=== PATIENT | female | born 1940 | race Caucasian/White ===

== ENCOUNTER 2017-03-21 21:25 | Inpatient (IN) | payer MEDICARE ==
[2017-03-21 22:03] LABS: #Basophils 0.1 thou/uL (0.0-0.2); #Eosinphils 0.4 thou/uL (0.0-0.7); #Lymphocytes 3.2 thou/uL (1.20-3.40); #Monocytes 0.6 thou/uL (0.11-0.59); #Neutrophils 4.3 thou/uL (1.40-6.50); %Basophils 0.7 % (0.0-1.0); %Eosinophils 4.2 % (0.0-10.0); %Lymphocytes 36.9 % (21.0-51.0); %Monocytes 7.4 % (0.0-10.0); Hematocrit 46.9 % (36.0-47.0); Red Blood Cell (RBC) Count 4.93 mill/uL (4.20-5.40); White Blood Cell (WBC) Count 8.5 thou/uL (4.8-10.8)
[2017-03-21] MEDS ORDERED: Diltiazem HCl 125 MG, Admixture Fee 1 EACH in Sodium Chloride 0.9% 100 ML SLOW IVP SCH (22:15)
--- NOTE | 2017-03-21 22:16 | RAD ---
AP VIEW OF THE CHEST 03/21/17 INDICATION: Palpitations and history of a-fib. COMPARISON: Prior two views of the chest dated 01/20/14. IMPRESSION: No acute cardiopulmonary abnormality. Chronic lung changes are similar. Calcified granuloma within t he left mid lung is stable. Heart size and pulmonary vasculature are within normal limits. No acute osseous abnormality is evident. POS: [facility]
[2017-03-21 22:28] LABS: ALT (SGPT) 14 U/L (8-55); AST (SGOT) 20 U/L (5-34); Alkaline Phosphatase 63 U/L (40-150); Anion Gap 18 mmol/L (10-20); BUN (Urea Nitrogen) 16 mg/dL (9.8-20.1); Bilirubin, Total 0.4 mg/dL (0.2-1.2); CK (CPK) 42 U/L (29-168); Calc. Creatinine Clearance 0 mL/min (70-130); Calcium 9.7 mg/dL (7.8-10.44); Carbon Dioxide 20 mmol/L (23-31); Chloride 103 mmol/L (98-107); Estimated GFR-MDRD 73; Globulin 2.9 g/dL (2.4-3.5); Protein, Total 7.2 g/dL (6.0-8.3)
[2017-03-21 22:32] LABS: Troponin I Less than 0.010 ng/mL (< 0.028)
[2017-03-22 01:45] VITALS: BMI 23.1
[2017-03-22] MEDS ORDERED: Acetaminophen 325 MG TAB PO PRN ×2 (02:24→08:10)
[2017-03-22] MEDS ORDERED: Ondansetron ODT 4 MG TAB SL PRN (02:24)
[2017-03-22] MEDS ORDERED: Ondansetron HCl/PF 4 MG/2 ML Vial IVP PRN (02:24)
[2017-03-22] MEDS ORDERED: Nitroglycerin 0.4 MG TAB (25 Tab Bottle) PO PRN (08:09)
[2017-03-22] MEDS ORDERED: Senokot 8.6 MG TAB PO PRN (08:10)
[2017-03-22] MEDS ORDERED: Mag-Al 1200 mg/1200 mg/30 ML UDCUP PO PRN (08:10)
[2017-03-22] MEDS ORDERED: Calcium Carbonate 500 MG ChewTAB PO PRN (08:10)
[2017-03-22] MEDS ORDERED: Milk Of Magnesia 30 ML UDCUP PO PRN (08:10)
--- NOTE | 2017-03-22 08:13 | PDOC.EVN ---
Event Note - Event Note Event Note: Patient seen and examined. Note dictated. Full code. Makes her own decisions.
[2017-03-22] MEDS ORDERED: Diltiazem 125 MG in Sodium Chloride 0.9% 100 ML IVPB SCH (08:15)
--- NOTE | 2017-03-22 08:34 | HP ---
DATE OF ADMISSION: 03/21/2017 PRIMARY CARE PHYSICIAN: Dr. Serrano. PRIMARY CARPET JOURNEYMAN: Dr. Uday Saez. CHIEF COMPLAINT: Palpitations. HISTORY OF PRESENT ILLNESS: The patient is a 76-year-old female with paroxysmal atrial fibrillation , on propafenone, presented to the emergency room with sudden onset of palpitations that started jyothi und at 8:00 p.m. while she was at home. She felt lightheaded along with some shortness of breath. No chest pain or syncope reported. No fever or chills. Recent immobilization travel reported. She is compliant with all of her medications. She is currently on aspirin. Her thyroid function was n ormal last week. She consumes 2-3 cups of coffee on a daily basis. In the emergency room, her initial vital signs showed temperature 97.8, respirations 18, pulse 147, blood pressure of 187/83 with O2 saturation 96% on room air. Her EKG was consistent with the atrial fibrillation with rapid ventricular response with heart rate in 140s. She was started on Cardizem drip. She received a total of 20 mg of Cardizem push along with IV fluids in the emergency room. PAST MEDICAL HISTORY: 1. Paroxysmal atrial fibrillation. 2. Hypertension. 3. Hyperlipidemia. 4. Coronary artery disease. PAST SURGICAL HISTORY: 1. Cardiac catheterization. 2. Fibroid tumor removal from the breast. 3. Tonsillectomy. 4. Appendectomy. 5. Hysterectomy. ALLERGIES: The patient is allergic to CODEINE, ERYTHROMYCIN, PENICILLIN, and SULFA. She also canno t tolerate STATINS. CURRENT HOME MEDICATIONS: Aspirin 81 mg daily, Zetia 10 mg daily, Centrum 1 tablet daily, fish oil 1000 mg daily, propafenone 225 mg three times daily, coenzyme Q10 200 mg daily, Diovan 320 mg daily. SOCIAL HISTORY: Patient currently lives at home. She denies any smoking or drug use. She drinks s ocially. FAMILY HISTORY: Negative for premature coronary artery disease. REVIEW OF SYSTEMS: The following complete review of systems was negative, unless otherwise mentione d in the HPI or below: Constitutional: Weight loss or gain, ability to conduct usual activities. Skin: Rash, itching. Eyes: Double vision, pain. ENT/Mouth: Nose bleeding, neck stiffness, pain, tenderness. Cardiovascular: Palpitations, dyspnea on exertion, orthopnea. Respiratory: Shortnes s of breath, wheezing, cough, hemoptysis, fever or night sweats. Gastrointestinal: Poor appetite, abdominal pain, heartburn, nausea, vomiting, constipation, or diarrhea. Genitourinary: Urgency, fr equency, dysuria, nocturia. Musculoskeletal: Pain, swelling. Neurologic/Psychiatric: Anxiety, de pression. Allergy/Immunologic: Skin rash, bleeding tendency. PHYSICAL EXAMINATION: VITAL SIGNS: As discussed above. GENERAL: A 76-year-old female in no apparent distress, feels better on Cardizem drip. HEENT: Head is atraumatic, normocephalic. Sclerae are anicteric. Moist mucous membranes. No oral lesion. NECK: Supple, no JVD appreciated. No carotid bruit. LUNGS: Clear to auscultation bilaterally. HEART: S1, S2 present. Irregularly irregular. No murmurs, rubs, or gallops appreciated. ABDOMEN: Soft, nontender, bowel sounds present. EXTREMITIES: No edema or calf tenderness. NEUROLOGIC: Grossly nonfocal. Moves all four extremities. PSYCHIATRY: Alert, awake, oriented x3, normal affect. SKIN: Warm and dry. LYMPH NODES: No palpable lymph nodes in the neck. PERIPHERAL VASCULAR: Radial pulses palpable bilaterally. MUSCULOSKELETAL: No joint swelling or tenderness. LABORATORY FINDINGS: 1. D-dimer was negative. 2. Troponins were not normal. 3. Sodium 137, potassium 4.2 with BUN 16, creatinine 0.77. 4. LFTs in normal range. 5. CBC showed WBC 8.5 with hemoglobin 15.3. 6. Chest x-ray, by my review, was negative for infiltrate. 7. EKG, by my review, as discussed above. IMPRESSION AND PLAN: 1. Atrial fibrillation with rapid ventricular response. Cardizem drip will be continued. We will keep n.p.o. We will consult Cardiology. Resume home dose of propafenone. We will discuss with Car diology if she needs to be on anticoagulation. Continue aspirin for now. 2. Hyperlipidemia. We will continue Zetia. 3. Hypertension. We will hold Diovan for now while on Cardizem drip. We will resume probably next 24 hours. The last blood pressure was 125/65. 4. Chronic kidney disease, stage 2. 5. Moderate mitral regurgitation/moderate aortic insufficiency. 6. Coronary artery disease. Plan of care was discussed with the patient. She stated understanding. The patient will require 2-3 days for stabilization.
[2017-03-22 08:41] LABS: Magnesium 1.9 mg/dL (1.6-2.6); Phosphorus 3.2 mg/dL (2.3-4.7)
[2017-03-22 08:48] LABS: Troponin I 0.013 ng/mL (< 0.028)
[2017-03-22] MEDS ORDERED: Aspirin 81 mg Enteric Coated Tablet PO SCH (09:00)
[2017-03-22] MEDS: Propafenone HCl 150 MG TAB PO SCH ×3 (09:10→21:39)
[2017-03-22] MEDS: Ezetimibe 10 MG TAB PO SCH (09:11)
[2017-03-22] MEDS: Apixaban 5 MG TAB PO SCH ×2 (09:22→21:38)
--- NOTE | 2017-03-22 09:59 | CON ---
DATE OF CONSULTATION: 03/22/2017 HISTORY: The patient is a 76-year-old woman who presented for evaluation of palpitations. The patient has a long history of atrial fibrillation. The patient also has a history of coronary artery disease. She has previously undergone a cardiac catheterization in 04/2011. She was found to have 70% stenosis in a second diagonal branch and luminal irregularities. The patient has been on medical therapy. She has been admitted previously with atrial fibrillation. She has been treated with Rythmol. The patient was in her usual state of health when she missed taking her afternoon dose of propafenone. A few hours later, the patient developed rapid palpitations. She denied having any chest discomfort. PAST MEDICAL HISTORY: 1. Atrial fibrillation. 2. Coronary artery disease. 3. Hypertension. PAST SURGICAL HISTORY: Hysterectomy, breast surgery, tonsillectomy. SOCIAL HISTORY: Nonsmoker. The patient has approximately 2 drinks a day. MEDICATIONS: Diovan 320 daily, Zetia 10 daily, aspirin 81 daily, propafenone 225 t.i.d. ALLERGIES: PENICILLIN, CODEINE, SULFA DRUGS and MYCIN DRUGS. REVIEW OF SYSTEMS: Ten point system notable for constipation. No history of easy bruising or bleeding, bright red blood per rectum, hematuria. PHYSICAL EXAMINATION: GENERAL: Well-developed woman in no acute distress. VITAL SIGNS: Blood pressure 125/65. NECK: Showed no jugular venous distention, no carotid bruits. LUNGS: Clear to auscultation. HEART: Regular rate and rhythm, normal S1, S2, no murmurs. ABDOMEN: Soft, nondistended. EXTREMITIES: Showed no edema. SKIN: Warm and dry. NEUROLOGIC: Nonfocal. VASCULAR: Radial pulses are 2+. LABORATORY RESULTS: Her white blood count is 8.5, hemoglobin 15.3, hematocrit 46.9, platelets are 263. Sodium is 137, potassium 4.2, chloride 103, bicarbonate 20, BUN 16, creatinine 0.77, glucose was 110. Troponin 0.013. EKG revealed atrial fibrillation with ST-T wave abnormality suggestive of ischemia. IMPRESSION: 1. Paroxysmal atrial fibrillation. 2. Coronary artery disease. 3. Hypertension. This patient presented with recurrent atrial fibrillation. The patient missed a dose of her propafenone. The patient will be started on low dose of beta blossom. The patient has a CHADS-VAS score of 5. We will start anticoagulation. We will place the patient on Apixaban, we will discontinue aspirin. We will restart the patient on propafenone and follow her with you through her hospitalization. ISAURA
[2017-03-22] MEDS ORDERED: cloNIDine 0.1 MG TAB PO PRN (14:20)
[2017-03-23 05:30] LABS: #Basophils 0.1 thou/uL (0.0-0.2); #Eosinphils 0.3 thou/uL (0.0-0.7); #Monocytes 0.6 thou/uL (0.11-0.59); #Neutrophils 2.9 thou/uL (1.40-6.50); %Basophils 1.2 % (0.0-1.0); %Eosinophils 4.1 % (0.0-10.0); %Lymphocytes 43.7 % (21.0-51.0); %Monocytes 8.3 % (0.0-10.0); Hematocrit 38.9 % (36.0-47.0); Mean Platelet Volume 6.2 fL (7.4-10.4); Red Blood Cell (RBC) Count 4.05 mill/uL (4.20-5.40); White Blood Cell (WBC) Count 6.8 thou/uL (4.8-10.8)
[2017-03-23 05:53] LABS: Anion Gap 10 mmol/L (10-20); BUN (Urea Nitrogen) 14 mg/dL (9.8-20.1); Calc. Creatinine Clearance 55 mL/min (70-130); Calcium 8.7 mg/dL (7.8-10.44); Carbon Dioxide 25 mmol/L (23-31); Chloride 104 mmol/L (98-107); Estimated GFR-MDRD 68; Magnesium 1.9 mg/dL (1.6-2.6)
[2017-03-23] MEDS: Apixaban 5 MG TAB PO SCH (09:54)
[2017-03-23] MEDS: Ezetimibe 10 MG TAB PO SCH (09:55)
[2017-03-23] MEDS: Propafenone HCl 150 MG TAB PO SCH (09:56)
[2017-03-23 11:55] VITALS: BP 101/65; TEMP 98.3
--- NOTE | 2017-03-23 12:03 | DIS ---
DATE OF DISCHARGE: 03/23/2017 DISCHARGE DISPOSITION: Home. FOLLOWUP: Follow up with primary care physician, Dr. Serrano in 1 week. Follow up with Dr. Saez n ext week. ALLERGIES: Patient is allergic to CODEINE, ERYTHROMYCIN, PENICILLIN, and SULFA. DISCHARGE MEDICATIONS: Toprol-XL 25 mg daily, Eliquis 5 mg b.i.d. Other home medications were resu med. Zetia 10 mg daily, multivitamin 1 tablet daily, fish oil 1000 mg daily, propafenone 225 mg t.i .d., Coenzyme Q10 of 200 mg daily, Diovan 320 mg daily. Patient was advised to reduce Diovan's dose if blood pressure is running on the lower side. BRIEF HOSPITAL COURSE: Patient is a 76-year-old female with paroxysmal atrial fibrillation, hyperte nsion, hyperlipidemia, and coronary artery disease presented to the hospital with palpitations. Her workup was consistent with atrial fibrillation with rapid ventricular response with a heart rate of 147. She was started on Cardizem drip. Her home dose of Rythmol was resumed. Patient was evaluat ed by Cardiology, Dr. Salazar. She spontaneously converted to sinus rhythm without any interventio n. Anticoagulation has been started. Her home dose of aspirin has been discontinued. She was also started on Toprol-XL. She has been cleared by Cardiology for discharge. Risk not limited to life threatening, bleeding from anticoagulation was discussed. She stated understanding. FINAL DIAGNOSES: 1. Atrial fibrillation with rapid ventricular response. Patient converted to sinus rhythm without any intervention. Toprol-XL was added. She was started on anticoagulation. Aspirin was discontinu ed. 2. Hypertension 3. Hyperlipidemia. 4. Chronic kidney disease, stage 2. 5. Coronary artery disease. 6. Moderate mitral regurgitation/moderate aortic insufficiency. Plan of care was discussed with the patient. She stated understanding.
--- NOTE | 2017-03-23 15:27 | EKG ---
Test Reason : SOB Blood Pressure : / mmHG Vent. Rate : 146 BPM Atrial Rate : 144 BPM P-R Int : 000 ms QRS Dur : 110 ms QT Int : 302 ms P-R-T Axes : 000 054 -66 degrees QTc Int : 470 ms Atrial fibrillation with rapid ventricular response Marked ST abnormality, possible inferior subendocardial injury No STEMI Abnormal ECG Confirmed by TEDDY ROACH M.D. ([id number]), state editor CHARIS MEAD ([id number]) on 03/23/2017 3:26:30 PM Referred By: Confirmed By:TEDDY ROACH M.D.
[2017-03-24] MEDS ORDERED: Valsartan 80 MG TAB PO SCH (09:00)
== END 2017-03-23 12:16 | disposition home or self-care (01) | DRG 310 ==
LOC: ERS 21:25 → 2SE 23:15
PROVIDERS: ADMIT Family Medicine; ATTEND Family Medicine
DX: I48.0 Paroxysmal atrial fibrillation (principal); I12.9 Hypertensive chronic kidney disease with stage 1 through stage 4 chronic kidney disease, or unspecified chronic kidney disease; I08.0 Rheumatic disorders of both mitral and aortic valves; E78.5 Hyperlipidemia, unspecified; I25.10 Atherosclerotic heart disease of native coronary artery without angina pectoris; N18.2 Chronic kidney disease, stage 2 (mild)
CPT/HCPCS: 36415; 71010; 80048; 80053; 80061; 81003; 82553; 83735; 84100; 84439; 84443; 84484; 85025; 85379; 93005; 94760; 96361; 96365; 96366; 96376; A4216; J7050

== ENCOUNTER 2018-01-28 21:42 | Emergency (ER) | payer MEDICARE ==
[2018-01-28 22:42] LABS: #Eosinphils 0.2 thou/uL (0.0-0.7); #Lymphocytes 2.4 thou/uL (1.20-3.40); #Monocytes 0.5 thou/uL (0.11-0.59); #Neutrophils 4.1 thou/uL (1.40-6.50); %Basophils 0.5 % (0.0-1.0); %Eosinophils 2.5 % (0.0-10.0); %Lymphocytes 33.6 % (21.0-51.0); %Monocytes 6.5 % (0.0-10.0); Hemoglobin 13.8 g/dL (12.0-16.0); Mean Corpuscular HGB CONC 34.5 g/dL (32.0-36.0); Mean Corpuscular Hemoglobin 32.8 pg (27.0-31.0); Mean Platelet Volume 5.9 fL (7.4-10.4); Platelet Count 275 thou/uL (130-400); RBC Distribution Width 11.6 % (11.5-14.5); Red Blood Cell (RBC) Count 4.21 mill/uL (4.20-5.40); White Blood Cell (WBC) Count 7.2 thou/uL (4.8-10.8)
--- NOTE | 2018-01-28 22:46 | RAD ---
SINGLE VIEW OF THE CHEST: 01/28/18 COMPARISON: 03/21/17 HISTORY: Shortness of breath. FINDINGS: Single view of the chest shows a normal sized cardiomediastinal silhouette. There is no evidence of c onsolidation, mass, or pleural effusion. The bones are unremarkable. IMPRESSION: No evidence of acute cardiopulmonary disease. POS: [facility]
[2018-01-28 23:06] LABS: CKMB 1.1 ng/mL (0-6.6); Troponin I Less than 0.010 ng/mL (< 0.028)
[2018-01-28] MEDS ORDERED: Meclizine HCl 25 MG TAB ONE (23:13)
--- NOTE | 2018-01-28 23:49 | CT ---
CT OF THE BRAIN WITHOUT CONTRAST: 01/28/18 COMPARISON: None. HISTORY: Hypertension and lightheadedness. TECHNIQUE: Multiple contiguous axial images were obtained in a CT of the brain without contrast. FINDINGS: The brain is normal in morphology and attenuation without focal lesions or confluent areas of infarct ion. There is no evidence of hydrocephalus, intracranial hemorrhage or extra-axial fluid collections. The calvarium and overlying soft tissues are unremarkable. The visualized paranasal sinuses and masto id air cells are well aerated. IMPRESSION: No evidence of acute intracranial abnormality. POS: [facility]
== END 2018-01-29 01:15 | disposition home or self-care (01) ==
LOC: ERS 21:42
DX: I10 Essential (primary) hypertension (principal); I48.91 Unspecified atrial fibrillation; E78.5 Hyperlipidemia, unspecified; Z79.899 Other long term (current) drug therapy
CPT/HCPCS: 36415; 70450; 71045; 82550; 82553; 83880; 84484; 85025; 93005

== ENCOUNTER 2018-08-04 08:43 | Outpatient (CLI) | payer MEDICARE, OTHER ==
[2018-08-04 09:46] LABS: ALT (SGPT) 19 U/L (8-55); AST (SGOT) 24 U/L (5-34); Albumin 4.1 g/dL (3.4-4.8); Alkaline Phosphatase 65 U/L (40-150); Anion Gap 13 mmol/L (10-20); BUN (Urea Nitrogen) 14 mg/dL (9.8-20.1); Bilirubin, Total 0.5 mg/dL (0.2-1.2); Calc. Creatinine Clearance 0 mL/min (70-130); Calcium 9.3 mg/dL (7.8-10.44); Carbon Dioxide 27 mmol/L (23-31); Chloride 100 mmol/L (98-107); Cholesterol 152 mg/dl (< 200 Desired); Estimated GFR-MDRD 61; Globulin 2.6 g/dL (2.4-3.5); Glucose 97 mg/dL (83-110); HDL Cholesterol 75 mg/dL (>60 Neg Risk); LDL Cholesterol, Calculated 67 mg/dL; Potassium 4.8 mmol/L (3.5-5.1); Protein, Total 6.7 g/dL (6.0-8.3); Sodium 135 mmol/L (136-145); Triglycerides 52 mg/dL (Less than 150)
== END 2018-08-04 08:44 ==
LOC: SCSMAMMO 08:43
PROVIDERS: ATTEND Internal Medicine
DX: E78.00 Pure hypercholesterolemia, unspecified (principal)
CPT/HCPCS: 36415; 77067; 80053; 80061

== ENCOUNTER 2019-02-04 07:12 | Outpatient (CLI) | payer MEDICARE, OTHER ==
--- NOTE | 2019-02-04 08:51 | ULT ---
RIGHT UPPER QUADRANT ULTRASOUND: INDICATIONS: Abdominal pain. COMPARISON: None. FINDINGS: No focal hepatic lesion is evident. The visualized gallbladder is normal appearing. No sonographic Khan sign is reported. No gallbladder wall thickening or pericholecystic fluid is identified. The common bile duct measures 4 mm. The right kidney measures 9.8 x 6.5 x 5 cm. No focal renal lesion or hydronephrosis is evident. IMPRESSION: No acute abnormality. POS: [facility]
== END 2019-02-04 07:13 | disposition home or self-care (01) ==
LOC: SCSULT 07:12
PROVIDERS: ATTEND Internal Medicine Gastroenterology
DX: K44.9 Diaphragmatic hernia without obstruction or gangrene (principal); R10.10 Upper abdominal pain, unspecified; R13.10 Dysphagia, unspecified; R63.4 Abnormal weight loss
CPT/HCPCS: 76705

== ENCOUNTER 2019-06-02 09:28 | Observation (INO) | payer MEDICARE, OTHER ==
[2019-06-02 10:07] LABS: #Basophils 0.1 thou/uL (0.0-0.2); #Eosinphils 0.3 thou/uL (0.0-0.7); #Monocytes 0.5 thou/uL (0.11-0.59); #Neutrophils 4.1 thou/uL (1.40-6.50); %Basophils 1.5 % (0.0-1.0); %Eosinophils 3.8 % (0.0-10.0); %Lymphocytes 28.7 % (21.0-51.0); %Monocytes 7.4 % (0.0-10.0); %Neutrophils 58.7 % (42.0-75.0); Hemoglobin 14.9 g/dL (12.0-16.0); Mean Corpuscular HGB CONC 33.2 g/dL (32.0-36.0); Mean Corpuscular Hemoglobin 31.1 pg (27.0-31.0); Mean Corpuscular Volume 93.7 fL (78.0-98.0); Mean Platelet Volume 6.3 fL (7.4-10.4); Platelet Count 241 thou/uL (130-400); RBC Distribution Width 11.9 % (11.5-14.5); Red Blood Cell (RBC) Count 4.78 mill/uL (4.20-5.40); White Blood Cell (WBC) Count 6.9 thou/uL (4.8-10.8)
[2019-06-02 10:23] LABS: INR-International Normal Ratio 1.1; PTT 34.3 SEC (22.9-36.1); Prothrombin Time 14.1 SEC (12.0-14.7)
--- NOTE | 2019-06-02 10:27 | RAD ---
PORTABLE CHEST 1 VIEW: Date: 06/02/2019 Time: 1021 hours HISTORY: Atrial fibrillation. FINDINGS: Comparison made with exam of 01/28/2018. The heart size is borderline. The aorta is tortuous. Evidence of old granulomatous disease again seen . The lungs are well expanded without lobar consolidation, pneumothoraces, or pleural effusions. IMPRESSION: No acute process. POS: [facility]
[2019-06-02 10:32] LABS: ALT (SGPT) 16 U/L (8-55); AST (SGOT) 18 U/L (5-34); Albumin 3.8 g/dL (3.4-4.8); Alkaline Phosphatase 58 U/L (40-110); Anion Gap 9 mmol/L (10-20); BUN (Urea Nitrogen) 12 mg/dL (9.8-20.1); Bilirubin, Total 0.6 mg/dL (0.2-1.2); Calc. Creatinine Clearance 0 mL/min (70-130); Calcium 8.9 mg/dL (7.8-10.44); Carbon Dioxide 29 mmol/L (23-31); Chloride 102 mmol/L (98-107); Estimated GFR-MDRD 65; Globulin 2.4 g/dL (2.4-3.5); Glucose 83 mg/dL (83-110); Potassium 4.3 mmol/L (3.5-5.1); Protein, Total 6.2 g/dL (6.0-8.3); Sodium 136 mmol/L (136-145)
[2019-06-02 12:15] LABS: Bilirubin Negative (Negative); Blood, Urine Negative (Negative); Clarity Clear (Clear); Glucose, Urine (Dipstick) Normal (Negative); Leukocyte Negative Leu/uL (Negative); Nitrite Negative (Negative); Protein, Urine (Dipstick) Negative (Neg-Trace); Urobilinogen Normal mg/dL (Less than 2)
--- NOTE | 2019-06-02 12:16 | CT ---
CT BRAIN WITHOUT CONTRAST: HISTORY: Headache. COMPARISON: 01/28/2018. FINDINGS: No evidence of acute infarct, hemorrhage, midline shift, or abnormal extraaxial fluid collections is seen. The ventricular size is stable and the basilar cisterns patent. The bony calvarium is intact. There is mild mucosal disease in the paranasal sinuses. IMPRESSION: No CT evidence of acute intracranial process. POS: [facility]
[2019-06-02] MEDS ORDERED: Ondansetron PF 4 MG/2 ML Vial IVP PRN (14:42)
[2019-06-02] MEDS ORDERED: Acetaminophen 500 MG TAB PO PRN (14:42)
[2019-06-02] MEDS ORDERED: Ondansetron ODT 4 MG TAB PO PRN (14:42)
[2019-06-02] MEDS: Sodium Chloride 0.9% 1,000 ML IV SCH (15:44)
[2019-06-02] MEDS: Propafenone HCl 150 MG TAB PO SCH ×2 (15:46→20:30)
[2019-06-02 15:47] VITALS: BMI 22.7
[2019-06-02] MEDS: Meclizine HCl 25 MG TAB PO SCH ×2 (16:06→20:30)
[2019-06-02] MEDS: Apixaban 5 MG TAB PO SCH (20:31)
[2019-06-02] MEDS: Famotidine 20 MG TAB PO SCH (20:31)
--- NOTE | 2019-06-02 21:21 | HP ---
PRIMARY CARE PROVIDER: Dr. Vimal Serrano. PRIMARY PMP PROJECT MANAGER: Dr. Uday Saez. CHIEF COMPLAINT: Dizziness and heart palpitations. HISTORY OF PRESENT ILLNESS: This is an 78-year-old female, who presented to [facility] Emergency Department complaining of 1 to 2-day history of persistent palpitations, dizziness, and near syncopal event. The patient states she had gotten out of bed and went to the restroom. When she was sitting on the toilet, she felt like she would pass out. The patient denies donell loss of consciousness, but had sensation of her head spinning. The patient states she was evaluated at the [facility] approximately 5 days prior to this evaluation for palpitations and discovered with atrial fibrillation with rapid rate, placed on Cardizem in the emergency room with rate control obtained per family report. The patient was released back home on the same day and continued her chronic medication regimen, which includes propafenone, Eliquis, and metoprolol. The patient states a long-standing history of atrial fibrillation over the last 15 years and has been followed by Dr. Saez for adjustment to her medication regimen. The patient states she underwent a 2D transthoracic echocardiogram approximately 6 months prior to this evaluation without specific recommendations for medication adjustment. The patient denied any increased weight gain, lower extremity swelling, fever, chills, or exposure history. The patient denied any specific chest pain or shortness of breath. In the emergency room, the patient underwent general evaluation including CT of the brain showing no acute process. Portable chest x-ray imaging unrevealing, and metabolic screening was unremarkable. Telemetry monitoring showed atrial fibrillation with controlled rate, and the patient received intravenous normal saline x500 mL. PAST MEDICAL HISTORY: 1. Chronic atrial fibrillation with variable rate control, on anticoagulation with Eliquis. 2. Hyperlipidemia. 3. Hypertension. 4. Seasonal allergies. 5. Coronary artery disease. PAST SURGICAL HISTORY: 1. Status post cardiac catheterization. 2. Status post fibroid tumor removal from the breast. 3. Status post tonsillectomy. 4. Status post appendectomy. 5. Status post hysterectomy. CURRENT MEDICATIONS: 1. Propafenone 225 mg p.o. t.i.d. 2. Diovan 320 mg p.o. daily. 3. Metoprolol-XL 25 mg p.o. daily. 4. Apixaban 5 mg p.o. b.i.d. 5. Coenzyme Q10 of 200 mg p.o. daily. 6. [place]-3 fatty acids 1000 mg p.o. daily. 7. Multivitamin 1 tablet p.o. daily. 8. Zetia 10 mg p.o. daily. List may not be comprehensive or accurate and need to be confirmed with family members. ALLERGIES: CODEINE, ERYTHROMYCIN, PENICILLIN, AND SULFA. FAMILY HISTORY: Positive for hypertension and coronary artery disease. SOCIAL HISTORY: , accompanied by her in the emergency room. No current alcohol, tobacco, or illicit drug use. Functional of all activities of daily living. REVIEW OF SYSTEMS: CONSTITUTIONAL: Negative for weight loss or gain, ability to conduct usual activities. SKIN: Negative for rash, itching. EYES: Negative for double vision, pain. ENT/MOUTH: Negative for nose bleeding, neck stiffness, pain, tenderness. CARDIOVASCULAR: Negative for palpitations, dyspnea on exertion, orthopnea. RESPIRATORY: Negative for shortness of breath, wheezing, cough, hemoptysis, fever or night sweats. GASTROINTESTINAL: Negative for poor appetite, abdominal pain, heartburn, nausea, vomiting, constipation, or diarrhea. GENITOURINARY: Negative for urgency, frequency, dysuria, nocturia. MUSCULOSKELETAL: Negative for pain, swelling. NEUROLOGIC/PSYCHIATRIC: Negative for anxiety, depression. ALLERGY/IMMUNOLOGIC: Negative for skin rash, bleeding tendency. Otherwise negative except as stated per HPI. PHYSICAL EXAMINATION: VITAL SIGNS: On admission; blood pressure 140/63, pulse 80, respiratory rate 18, temperature 98 degrees Fahrenheit, and O2 saturation 99% on room air. GENERAL APPEARANCE: This is an 78-year-old female, alert and oriented x3, pleasant, smiling, in no acute distress. HEENT: Pupils are equal, round, and reactive to light and accommodation. Extraocular muscles are intact. No scleral icterus. No conjunctival injection. Nares patent. OP is clear. Teeth in good repair. NECK: Supple. No cervical adenopathy. No thyromegaly. No carotid bruits. No JVD appreciated. Cervical spine with full active and passive range of motion. No meningeal signs noted. CHEST: Lungs are clear to auscultation bilaterally. CARDIOVASCULAR: S1 and S2 without noted murmur, rub, or gallop. Irregular rate and rhythm noted. ABDOMEN: Flat, soft, nontender, nondistended. Bowel sounds are positive in all 4 quadrants. There is no hepatosplenomegaly. No abdominal bruits. No rebound or guarding appreciated. EXTREMITIES: Warm and dry with good turgor. No clubbing, cyanosis, or asymmetric edema appreciated. Pulses palpable distally at the dorsalis pedis, posterior tibial, and popliteal arteries bilaterally. Capillary refill less than 2 seconds. NEUROLOGIC: Cranial nerves 2 through 12 are grossly intact. No focal or lateralizing signs appreciated. PERTINENT LABORATORY AND X-RAY FINDINGS: Complete metabolic profile within normal limits. Troponin I negative x1. CBC within normal limits. PT 14.1, INR 1.1, and PTT 34.3. Urinalysis negative. Portable chest x-ray dated 06/02/2019, showed no acute cardiopulmonary process. CT of the brain without contrast dated 06/02/2019, showed no acute intracranial process. EKG dated 06/02/2019, by my interpretation showed atrial fibrillation with rates in the 80s. Normal R-wave progression noted in the precordial leads. Normal axis. Intraventricular conduction delay noted. ASSESSMENT AND PLAN: 1. Chronic atrial fibrillation with variable rate. The patient will be observed on the telemetry unit. We will obtain home medication regimen and confirm propafenone dosing. Continue metoprolol. Resume Eliquis 5 mg p.o. b.i.d. Obtain 2D transthoracic echocardiogram from recent cardiology visit as an outpatient. Check magnesium and TSH level in the a.m. 2. Vertigo. Exact etiology unclear. Questionable relationship to #1. We will continue intravenous normal saline at 75 mL/hour. Check carotid Doppler study. Check magnesium and TSH level. Trial meclizine 25 mg p.o. q.8 hours p.r.n. 3. Hypertension. Resume home blood pressure regimen and monitor clinical response. 4. Chronic anticoagulation. Continue Eliquis 5 mg p.o. b.i.d. No evidence of active bleeding. 5. Prophylaxis. SCDs while in bed. Pepcid 20 mg p.o. b.i.d. 6. Code status is full. Surrogate medical decision maker is patient's spouse. Job ID: [id number]
[2019-06-03 05:07] LABS: Eosinophils 4 % (0-10); Hemoglobin 11.6 g/dL (12.0-16.0); Lymphocytes 43 % (21-51); MDiff Complete? YES; Mean Corpuscular HGB CONC 33.3 g/dL (32.0-36.0); Mean Corpuscular Hemoglobin 31.5 pg (27.0-31.0); Mean Corpuscular Volume 94.6 fL (78.0-98.0); Mean Platelet Volume 6.4 fL (7.4-10.4); Monocytes 1 % (0-10); Neutrophil 48 % (42-75); Platelet Count 182 thou/uL (130-400); Platelet Morphology Comment Appears Adequate; RBC Distribution Width 11.7 % (11.5-14.5); RBC Morphology Normal; Reactive Lymphocytes 4 % (0-10); Red Blood Cell (RBC) Count 3.67 mill/uL (4.20-5.40); White Blood Cell (WBC) Count 7.4 thou/uL (4.8-10.8)
[2019-06-03 05:17] LABS: Anion Gap 9 mmol/L (10-20); BUN (Urea Nitrogen) 13 mg/dL (9.8-20.1); Calc. Creatinine Clearance 53 mL/min (70-130); Calcium 7.7 mg/dL (7.8-10.44); Carbon Dioxide 25 mmol/L (23-31); Chloride 103 mmol/L (98-107); Estimated GFR-MDRD 71; Glucose 93 mg/dL (83-110); Magnesium 1.8 mg/dL (1.6-2.6); Potassium 4.1 mmol/L (3.5-5.1); Sodium 133 mmol/L (136-145)
[2019-06-03] MEDS: Sodium Chloride 0.9% 1,000 ML IV SCH (05:36)
[2019-06-03] MEDS: Meclizine HCl 25 MG TAB PO SCH ×2 (08:47→14:16)
[2019-06-03] MEDS: Propafenone HCl 150 MG TAB PO SCH ×2 (08:48→14:16)
[2019-06-03] MEDS: Apixaban 5 MG TAB PO SCH (08:48)
[2019-06-03] MEDS: Famotidine 20 MG TAB PO SCH (08:48)
[2019-06-03] MEDS ORDERED: Fluticasone Propionate Nasal Spray 16 gm Bottle NASAL SCH (09:00)
[2019-06-03] MEDS ORDERED: Ubidecarenone 50 MG CAP PO SCH (09:00)
[2019-06-03 11:48] VITALS: BP 123/59; TEMP 97.3
--- NOTE | 2019-06-03 14:04 | ULT ---
Carotid arterial Doppler ultrasound: 06/03/2019 HISTORY: Vertigo, assess for carotid artery disease TECHNIQUE: Multiplanar grayscale sonographic imaging of the arterial structures of the neck obtained with color flow and spectral analysis FINDINGS: Antegrade blood flow and normal arterial waveforms are documented within the carotid and ve rtebral system bilaterally. Eccentric circumferential atherosclerotic plaque is noted within the distal right CCA. There is mild plaque within the proximal right ICA. Circumferential partially calcified plaque noted within the left CCA distally as well as the proximal left ICA. Peak systolic velocity (centimeters second): Right CCA 92 Right ICA 137 Right ECA 113 Left CCA 82 Left ICA 132 Left ECA 191 IC/CC ratio is 1.5 on the right and 1.6 on the left. IMPRESSION: Mildly elevated velocity noted within the internal carotid artery distally bilaterally estes ggesting stenosis in the 50-69% range. This could be better assessed via CT angiogram of the neck.
--- NOTE | 2019-06-04 10:15 | DIS ---
DATE OF ADMISSION: 06/02/2019 DATE OF DISCHARGE: 06/03/2019 DISCHARGE DIAGNOSES: 1. Dizziness/vertigo, multifactorial including dehydration, improved. 2. Chronic atrial fibrillation with variable rate. 3. Hypertension, stable. 4. Chronic anticoagulation with Eliquis. 5. Seasonal allergies. 6. Dyslipidemia. CONSULTATIONS: None. PERTINENT LABORATORY AND X-RAY FINDINGS: Complete metabolic profile within normal limits. Magnesium 1.8. TSH 2.44. CBC showed hemoglobin ranging between 11.6 to 14.9. Urinalysis negative. Portable chest x-ray dated 06/02/2019, showed no acute cardiopulmonary process. CT of the brain without contrast dated 06/02/2019, showed no acute intracranial process. Mild mucosal disease in the paranasal sinuses. Carotid Doppler study dated 06/03/2019, showed mild elevated velocity in the internal carotid arteries bilaterally with mild stenosis of 50% to 69%. 2D transthoracic echocardiogram dated 06/23/2018, showed ejection fraction of 50% to 55%. Moderate mitral and aortic valve regurgitation. Moderate pulmonic valve regurgitation. HOSPITAL COURSE: The patient was observed on the telemetry unit after initially presenting with dizziness and heart palpitations in the context of chronic atrial fibrillation. The patient was noted with atrial fibrillation with heart rates in the mid to upper 80s without evidence of acute ST-T wave changes. The patient was noted with mild dehydration and placed on IV fluids. The patient continued on home regimen to include propafenone and metoprolol. The patient's dizziness was addressed with CT imaging of the brain showing no acute process with questionable paranasal sinus mucosal thickening. The patient was initiated on trial of Flonase and given meclizine p.r.n. The patient also underwent evaluation of carotid vasculature showing [id number] stenosis without recommendation for acute intervention. The patient overall remained clinically stable during the hospital course tolerating regular oral intake with stable vital signs. I have examined the patient at the time of discharge and discussed followup instructions. The patient verbalized understanding and in agreement and ready for discharge on 2019. DISCHARGE MEDICATIONS: 1. Xanax 0.25 mg p.o. at bedtime p.r.n. 2. Zetia 10 mg p.o. daily. 3. Metoprolol XL 50 mg p.o. daily. 4. Multivitamin one tab p.o. daily. 5. Olmesartan 5 mg p.o. b.i.d. 6. [place]-3 fatty acids 1000 mg p.o. daily. 7. Omeprazole 20 mg p.o. daily. 8. Coenzyme Q10 of 200 mg p.o. daily. 9. Eliquis 5 mg p.o. b.i.d. 10. Flonase 1 spray in each nares daily. 11. Propafenone 225 mg p.o. t.i.d. FOLLOWUP: The patient may follow up with her primary care provider, Dr. Vimal Serrano, within 7 days of discharge. The patient will follow up with Dr. Uday Saez and to call his office for appointment, time, and date. CONDITION ON DISCHARGE: Stable. ACTIVITY: Ad-karyn. DIET: Heart healthy. CODE STATUS: Full. DISPOSITION: To home on 06/03/2019. Job ID: [id number] MTDD
--- NOTE | 2019-06-06 11:11 | EKG ---
Test Reason : AFIB Blood Pressure : / mmHG Vent. Rate : 088 BPM Atrial Rate : 064 BPM P-R Int : 000 ms QRS Dur : 140 ms QT Int : 396 ms P-R-T Axes : 000 061 013 degrees QTc Int : 479 ms Atrial fibrillation Non-specific intra-ventricular conduction block Nonspecific T wave abnormality Abnormal ECG Confirmed by ANNE YODER ([id number]), general expeditor IRAIS HANKINS ([id number]) on 06/06/2019 11:10:45 AM Referred By: Confirmed By:ANNE YODER
== END 2019-06-03 15:58 | disposition home or self-care (01) ==
LOC: ERS 09:28 → ERHOLD 13:34 → 2SW 15:43
PROVIDERS: ADMIT Family Medicine; ATTEND Neuromusculoskeletal Medicine & OMM
DX: I48.20 Chronic atrial fibrillation, unspecified (principal); R42 Dizziness and giddiness; E86.0 Dehydration; I10 Essential (primary) hypertension; E78.5 Hyperlipidemia, unspecified; J30.9 Allergic rhinitis, unspecified; I25.10 Atherosclerotic heart disease of native coronary artery without angina pectoris; I65.23 Occlusion and stenosis of bilateral carotid arteries; Z79.01 Long term (current) use of anticoagulants; Z79.899 Other long term (current) drug therapy; Z88.0 Allergy status to penicillin; Z88.1 Allergy status to other antibiotic agents; Z88.2 Allergy status to sulfonamides; Z88.5 Allergy status to narcotic agent
CPT/HCPCS: 70450; 71045; 80048; 80053; 81003; 83735; 84443; 84484; 85007; 85025; 85027; 85610; 85730; 93005; 93880; 96360; 96361 ×3; 99285; G0378 ×3; 36415; J8597

== ENCOUNTER 2019-09-30 10:08 | Outpatient (CLI) | payer MEDICARE, OTHER ==
--- NOTE | 2019-09-30 10:47 | RAD ---
TWO VIEWS LUMBOSACRAL SPINE: Comparison: None. History: Low back pain. Chronic and worse with activities. FINDINGS: Two views of the lumbosacral spine shows moderate sclerotic curvature of the spine. Intervertebral di scs have narrowed throughout the cervical spine. There is slight wedging of the right aspect of the v ertebral bodies in the midcervical spine. There is no evidence of acute fracture or subluxation. Mode rate osteophyte formation is seen throughout the lumbar spine. 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 POS: EAA
== END 2019-09-30 10:09 | disposition home or self-care (01) ==
LOC: SCSRAD 10:08
PROVIDERS: ATTEND Physical Medicine & Rehabilitation
DX: M51.36 Other intervertebral disc degeneration, lumbar region (principal); M54.5 Low back pain; M47.816 Spondylosis without myelopathy or radiculopathy, lumbar region
CPT/HCPCS: 72100

== ENCOUNTER 2020-05-26 09:41 | Outpatient (CLI) | payer MEDICARE, OTHER ==
--- NOTE | 2020-05-26 10:29 | RAD ---
PA AND LATERAL VIEWS CHEST: Date: 05/26/2020 HISTORY: Paroxysmal atrial fibrillation. COMPARISON: 06/02/2019. FINDINGS: The heart size is borderline. Evidence of old granulomatous disease again seen. The lungs are well ex panded without lobar consolidation, pneumothoraces, or pleural effusions. There is scoliosis of the s pine. IMPRESSION: No radiographic evidence of acute cardiopulmonary process. POS: OFF
== END 2020-05-26 09:42 | disposition home or self-care (01) ==
LOC: SCSRAD 09:41
PROVIDERS: ATTEND Nurse Practitioner Family
DX: I48.0 Paroxysmal atrial fibrillation (principal)
CPT/HCPCS: 71046

== ENCOUNTER 2021-11-03 09:33 | Outpatient (CLI) | payer MEDICARE ==
[2021-11-03 10:43] LABS: #Basophils 0.1 10x3/uL (0.0-0.2); #Eosinphils 0.3 10x3/uL (0.0-0.5); #Monocytes 0.6 10x3/uL (0.0-1.1); #Neutrophils 3.4 10x3/uL (1.5-8.4); %Basophils 1.6 % (0.0-2.0); %Eosinophils 4.8 % (0.0-6.0); %Monocytes 9.1 % (0.0-10.0); %Neutrophils 55.2 % (40.0-75.0); Hemoglobin 14.8 g/dL (12.0-15.5); Mean Corpuscular HGB CONC 33.8 g/dL (32.0-36.0); Mean Corpuscular Volume 94.8 fl (81.6-98.3); Mean Platelet Volume 8.8 fl (7.4-10.4); Platelet Count 224 10x3/uL (150-450); RBC Distribution Width 12.9 % (11.5-14.5); Red Blood Cell (RBC) Count 4.62 10x6/uL (3.90-5.03); White Blood Cell (WBC) Count 6.2 10x3/uL (3.5-10.5)
[2021-11-03 10:50] LABS: INR-International Normal Ratio 0.9; PTT 28.2 sec (22.0-33.0)
[2021-11-03 11:02] LABS: Anion Gap 14 mmol/L (10-20); BUN (Urea Nitrogen) 18 mg/dL (9.8-20.1); Calc. Creatinine Clearance 0 mL/min (70-130); Calcium 8.9 mg/dL (7.8-10.44); Carbon Dioxide 25 mmol/L (23-31); Chloride 100 mmol/L (98-107); Glucose 91 mg/dL (83-110); Potassium 4.8 mmol/L (3.5-5.1); Sodium 134 mmol/L (136-145)
== END 2021-11-03 09:34 | disposition home or self-care (01) ==
LOC: LABBT 09:33
PROVIDERS: ATTEND Internal Medicine Cardiovascular Disease
DX: Z01.812 Encounter for preprocedural laboratory examination (principal); I48.19 Other persistent atrial fibrillation; Z20.822 Contact with and (suspected) exposure to COVID-19
CPT/HCPCS: 80048; 85025; 85610; 85730; U0003; U0005

== ENCOUNTER 2021-11-08 08:45 | Observation (INO) | payer MEDICARE ==
[2021-11-03 13:45] VITALS: BMI 22.4
[2021-11-08] MEDS ORDERED: Heparin 10,000 UNITS/ 10 ML VIAL ONE (08:57)
[2021-11-08] MEDS ORDERED: Isoproterenol 0.2 MG/1 ML AMP ONE (08:57)
[2021-11-08] MEDS ORDERED: Heparin 25,000 units/D5W 500 ML ONE (08:57)
[2021-11-08] MEDS ORDERED: Protamine Sulfate 50 MG/5 ML VIAL ONE ×2 (08:57→14:54)
[2021-11-08] MEDS ORDERED: fentaNYL Citrate/PF 100 MCG/2 ML SYRINGE ONE (11:55)
[2021-11-08] MEDS ORDERED: Phenylephrine 10 MG/ML VIAL ONE (11:56)
[2021-11-08] MEDS ORDERED: Fentanyl 100 MCG/2 ML VIAL ONE (14:03)
[2021-11-08] MEDS ORDERED: Amiodarone 150 MG/3 ML VIAL ONE (14:32)
[2021-11-08] MEDS ORDERED: Calcium Chloride 1 GM/10 ML Abboject SYRINGE ONE (14:57)
[2021-11-08] MEDS ORDERED: SUGAMMADEX SODIUM 200 MG/2 ML VIAL ONE (15:00)
[2021-11-08] MEDS ORDERED: Acetaminophen 325 MG TAB PO PRN (15:33)
[2021-11-08] MEDS ORDERED: Amiodarone 450 MG, Admixture Fee 1 EACH in Dextrose 5% in Water 250 ML IVPB PRN ×2 (15:41→16:26)
[2021-11-08] MEDS ORDERED: Ketorolac Tromethamine 30 MG/ML VIAL IVP PRN (16:06)
[2021-11-08] MEDS: Sucralfate 1 GM TAB PO SCH ×2 (19:09→20:35)
[2021-11-08] MEDS: Apixaban 2.5 MG TAB PO SCH (20:35)
[2021-11-08] MEDS ORDERED: Famotidine 20 MG TAB PO SCH (21:00)
[2021-11-08] MEDS ORDERED: OLMESARTAN MEDOXOMIL 5 MG PO SCH (21:00)
[2021-11-08] MEDS ORDERED: ALPRAZolam 0.25 MG TAB PO SCH (21:00)
[2021-11-09 03:36] VITALS: TEMP 97.6
[2021-11-09 04:23] LABS: #Basophils 0.1 thou/uL (0.0-0.2); #Eosinphils 0.1 thou/uL (0.0-0.7); #Lymphocytes 0.7 thou/uL (1.20-3.40); #Monocytes 0.1 thou/uL (0.11-0.59); #Neutrophils 5.7 thou/uL (1.40-6.50); %Basophils 1.5 % (0.0-1.0); %Eosinophils 1.2 % (0.0-10.0); %Monocytes 1.5 % (0.0-10.0); %Neutrophils 85.7 % (42.0-75.0); Hemoglobin 12.8 g/dL (12.0-16.0); Mean Corpuscular HGB CONC 32.1 g/dL (32.0-36.0); Mean Corpuscular Hemoglobin 32.5 pg (27.0-31.0); Mean Platelet Volume 6.7 fL (7.4-10.4); Platelet Count 203 thou/uL (130-400); RBC Distribution Width 12.4 % (11.5-14.5); Red Blood Cell (RBC) Count 3.95 mill/uL (4.20-5.40); White Blood Cell (WBC) Count 6.6 thou/uL (4.8-10.8)
[2021-11-09 04:53] LABS: Anion Gap 14 mmol/L (10-20); BUN (Urea Nitrogen) 13 mg/dL (9.8-20.1); Calc. Creatinine Clearance 54 mL/min (70-130); Calcium 8.6 mg/dL (7.8-10.44); Carbon Dioxide 19 mmol/L (23-31); Chloride 107 mmol/L (98-107); Glucose 156 mg/dL (83-110); Potassium 4.9 mmol/L (3.5-5.1); Sodium 135 mmol/L (136-145)
[2021-11-09 07:26] VITALS: BP 115/63
[2021-11-09] MEDS ORDERED: Fish Oil 1,000 MG CAP PO SCH (09:00)
[2021-11-09] MEDS ORDERED: Furosemide 20 MG TAB PO PRN (09:00)
[2021-11-09] MEDS ORDERED: Multivit, Therapeutic 1 TAB PO SCH (09:00)
[2021-11-09] MEDS ORDERED: Loratadine 10 MG TAB PO SCH (09:00)
[2021-11-09] MEDS ORDERED: Ezetimibe 10 MG TAB PO SCH (09:00)
[2021-11-09] MEDS: Apixaban 2.5 MG TAB PO SCH (09:44)
[2021-11-09] MEDS: Sucralfate 1 GM TAB PO SCH (09:49)
== END 2021-11-09 11:50 | disposition home or self-care (01) ==
LOC: SDC 08:45 → 2SW 18:36
PROVIDERS: ADMIT Internal Medicine Cardiovascular Disease; ATTEND Internal Medicine Cardiovascular Disease
PROC: B244ZZ3 Ultrasonography of Right Heart, Intravascular (ICD-10-PCS; principal; 2021-11-08)
PROC: 02583ZZ Destruction of Conduction Mechanism, Percutaneous Approach (ICD-10-PCS; 2021-11-08)
PROC: 02K83ZZ Map Conduction Mechanism, Percutaneous Approach (ICD-10-PCS; 2021-11-08)
PROC: 4A023FZ Measurement of Cardiac Rhythm, Percutaneous Approach (ICD-10-PCS; 2021-11-08)
PROC: 4A0234Z Measurement of Cardiac Electrical Activity, Percutaneous Approach (ICD-10-PCS; 2021-11-08)
DX: I48.11 Longstanding persistent atrial fibrillation (principal); I08.0 Rheumatic disorders of both mitral and aortic valves; I25.10 Atherosclerotic heart disease of native coronary artery without angina pectoris; K21.9 Gastro-esophageal reflux disease without esophagitis; I13.10 Hypertensive heart and chronic kidney disease without heart failure, with stage 1 through stage 4 chronic kidney disease, or unspecified chronic kidney disease; N18.9 Chronic kidney disease, unspecified; E78.00 Pure hypercholesterolemia, unspecified; Z79.01 Long term (current) use of anticoagulants; Z79.899 Other long term (current) drug therapy; Z88.0 Allergy status to penicillin; Z88.1 Allergy status to other antibiotic agents; Z88.2 Allergy status to sulfonamides; Z88.5 Allergy status to narcotic agent; Z88.8 Allergy status to other drugs, medicaments and biological substances
CPT/HCPCS: 80048; 85025; 85347 ×2; 93005; 93613; 93656; 93657; 93662; C1732 ×2; C1759; C1760; G0378 ×2; 36415; J0282; J1644; J2370; J2720; J3010

== ENCOUNTER 2021-12-04 10:25 | Outpatient (CLI) | payer MEDICARE ==
[2021-12-04 11:33] LABS: Hemoglobin 14.7 g/dL (12.0-15.5); Mean Corpuscular HGB CONC 33.6 g/dL (32.0-36.0); Mean Corpuscular Hemoglobin 31.3 pg (27.0-33.0); Mean Corpuscular Volume 93.2 fl (81.6-98.3); Mean Platelet Volume 9.1 fl (7.4-10.4); Platelet Count 276 10x3/uL (150-450); RBC Distribution Width 13.2 % (11.5-14.5); White Blood Cell (WBC) Count 6.6 10x3/uL (3.5-10.5)
[2021-12-04 11:56] LABS: PTT 28.2 sec (22.0-33.0); Prothrombin Time 10.5 sec (9.5-12.1)
[2021-12-04 12:01] LABS: Anion Gap 9 mmol/L (10-20); BUN (Urea Nitrogen) 16 mg/dL (9.8-20.1); Calc. Creatinine Clearance 0 mL/min (70-130); Calcium 9.3 mg/dL (7.8-10.44); Carbon Dioxide 25 mmol/L (23-31); Chloride 96 mmol/L (98-107); Estimated GFR 58; Glucose 96 mg/dL (83-110); Sodium 126 mmol/L (136-145)
== END 2021-12-04 10:26 | disposition home or self-care (01) ==
LOC: LABBT 10:25
PROVIDERS: ATTEND Internal Medicine Cardiovascular Disease
DX: Z01.812 Encounter for preprocedural laboratory examination (principal); Z51.81 Encounter for therapeutic drug level monitoring; I48.0 Paroxysmal atrial fibrillation; I51.9 Heart disease, unspecified; Z79.01 Long term (current) use of anticoagulants; Z20.822 Contact with and (suspected) exposure to COVID-19
CPT/HCPCS: 80048; 85027; 85610; 85730; 87811

== ENCOUNTER → 2021-12-06 | Day surgery (SDC) | payer MEDICARE ==
[2021-12-05 11:48] VITALS: BMI 22.4
[~2021-12-06] MED LIST: Ondansetron PF 4 MG/2 ML Vial ONE; PHENYLEPHRINE-NS 100 MCG/ML 10 ML SYRINGE ONE; PROPOFOL 200 MG/20 ML VIAL ONE; ePHEDrine Sulfate 50 MG/10 ML VIAL ONE
== END | disposition home or self-care (01) ==
LOC: SDC 08:55
PROVIDERS: ATTEND Internal Medicine Cardiovascular Disease
PROC: 5A2204Z Restoration of Cardiac Rhythm, Single (ICD-10-PCS; principal; 2021-12-06)
DX: I48.19 Other persistent atrial fibrillation (principal); I11.9 Hypertensive heart disease without heart failure; I08.0 Rheumatic disorders of both mitral and aortic valves; I25.10 Atherosclerotic heart disease of native coronary artery without angina pectoris; K21.9 Gastro-esophageal reflux disease without esophagitis; Z79.01 Long term (current) use of anticoagulants; Z79.899 Other long term (current) drug therapy; Z88.0 Allergy status to penicillin; Z88.1 Allergy status to other antibiotic agents; Z88.2 Allergy status to sulfonamides; Z88.5 Allergy status to narcotic agent; Z88.8 Allergy status to other drugs, medicaments and biological substances
CPT/HCPCS: 92960; 93005; 93010; J2405; J2704

== ENCOUNTER 2022-08-31 10:23 | Day surgery (SDC) | payer MEDICARE ==
[2022-08-29 13:29] LABS: Hemoglobin 14.7 g/dL (12.0-15.5); Mean Corpuscular HGB CONC 32.5 g/dL (32.0-36.0); Mean Corpuscular Hemoglobin 30.1 pg (27.0-33.0); Mean Corpuscular Volume 92.4 fl (81.6-98.3); Mean Platelet Volume 8.8 fl (7.4-10.4); Platelet Count 262 10x3/uL (150-450); Red Blood Cell (RBC) Count 4.89 10x6/uL (3.90-5.03); White Blood Cell (WBC) Count 8.7 10x3/uL (3.5-10.5)
[2022-08-29 13:30] VITALS: BMI 20.5
[2022-08-29 13:55] LABS: PTT 26.8 sec (22.0-33.0); Prothrombin Time 10.4 sec (9.5-12.1)
[2022-08-29 13:59] LABS: Anion Gap 18 mmol/L (10-20); BUN (Urea Nitrogen) 17 mg/dL (9.8-20.1); Calc. Creatinine Clearance 43 mL/min (70-130); Calcium 9.4 mg/dL (7.8-10.44); Carbon Dioxide 23 mmol/L (23-31); Chloride 100 mmol/L (98-107); Estimated GFR 69; Glucose 103 mg/dL (83-110); Potassium 4.6 mmol/L (3.5-5.1); Sodium 136 mmol/L (136-145)
[2022-08-31] MEDS ORDERED: Lidocaine 1% (PF) 30 ML VIAL ONE (12:17)
[2022-08-31] MEDS ORDERED: Heparin 10,000 UNITS/ 10 ML VIAL ONE (12:17)
[2022-08-31] MEDS ORDERED: fentaNYL 50 mcg/mL 1 mL Vial ONE ×2 (12:34)
[2022-08-31] MEDS ORDERED: KETAMINE 100 MG/ML (5ML VIAL) ONE (12:36)
[2022-08-31] MEDS ORDERED: ePHEDrine Sulfate 50 MG/10 ML VIAL ONE (12:55)
[2022-08-31] MEDS ORDERED: GLYCOPYRROLATE/PF 0.2 MG/ML VIAL ONE (12:55)
[2022-08-31] MEDS ORDERED: PROPOFOL 200 MG/20 ML VIAL ONE (12:55)
[2022-08-31] MEDS ORDERED: DOPamine 400 MG/D5W 250 ML 250 ML ONE (13:26)
== END 2022-08-31 16:53 | disposition home or self-care (01) ==
LOC: SDC 10:23
PROVIDERS: ATTEND Internal Medicine Cardiovascular Disease
PROC: 02583ZZ Destruction of Conduction Mechanism, Percutaneous Approach (ICD-10-PCS; principal; 2022-08-31)
PROC: 02K83ZZ Map Conduction Mechanism, Percutaneous Approach (ICD-10-PCS; 2022-08-31)
DX: I48.19 Other persistent atrial fibrillation (principal); I48.4 Atypical atrial flutter; I12.9 Hypertensive chronic kidney disease with stage 1 through stage 4 chronic kidney disease, or unspecified chronic kidney disease; N18.1 Chronic kidney disease, stage 1; I08.0 Rheumatic disorders of both mitral and aortic valves; I25.10 Atherosclerotic heart disease of native coronary artery without angina pectoris; K21.9 Gastro-esophageal reflux disease without esophagitis; E78.00 Pure hypercholesterolemia, unspecified; Z79.01 Long term (current) use of anticoagulants; Z79.620 Long term (current) use of immunosuppressive biologic; Z79.899 Other long term (current) drug therapy; Z88.0 Allergy status to penicillin; Z88.2 Allergy status to sulfonamides; Z88.5 Allergy status to narcotic agent; Z88.8 Allergy status to other drugs, medicaments and biological substances; Z95.0 Presence of cardiac pacemaker
CPT/HCPCS: 80048; 85027; 85610; 85730; 93623; 93650; J3010; 93005; C1732; C1894; J1265; J1644; J2001; J2704; J3490

== ENCOUNTER 2023-05-24 12:14 | Outpatient (CLI) | payer MEDICARE | END 2023-05-24 12:15 | disposition home or self-care (01) | LOC: BICRAD 12:14 | PROVIDERS: ATTEND Family Medicine | DX: M25.551 Pain in right hip (principal); M25.552 Pain in left hip; M16.0 Bilateral primary osteoarthritis of hip ==